=== PATIENT | male | born 1980 | race Caucasian/White ===

== ENCOUNTER → 2020-12-09 04:12 | Outpatient (CLI) | payer OTHER, SELFPAY ==
[2020-12-09 19:19] LABS: SARS-CoV-2 RNA PCR Negative
== END ==
PROVIDERS: PCP Family Medicine; Visit Provider Family Medicine
DX: J02.9 Acute pharyngitis, unspecified (principal); R51.9 Headache, unspecified; Z20.822 Contact with and (suspected) exposure to COVID-19
CPT/HCPCS: C9803; U0003; U0005

== ENCOUNTER 2022-06-21 10:52 | Outpatient (CLI) | payer OTHER, SELFPAY ==
[2022-06-21 12:03] LABS: SARS-CoV-2 RNA PCR Negative
== END 2022-06-21 10:53 | disposition home or self-care (01) ==
LOC: ANHLAB 10:59
PROVIDERS: PCP Family Medicine
DX: Z20.822 Contact with and (suspected) exposure to COVID-19 (principal)
CPT/HCPCS: U0003; U0005

== ENCOUNTER 2024-05-27 13:06 | Emergency (ER) | payer OTHER, SELFPAY ==
--- NOTE | 2024-05-27 13:08 | ED_ITS ---
HPI - URI/Sore Throat General Chief Complaint: Upper Respiratory Infection Stated Complaint: Congestion Source: patient and RN notes reviewed Mode of arrival: ambulatory Limitations: no limitations History of Present Illness HPI Narrative: Patient is a 44-year-old male who complains of sinus pain and pressure for the last 2 weeks. Patient reports nasal congestion and drainage. He also endorses postnasal drip. Denies cough, chest pain, shortness of breath. Denies recent fevers. States that he usually gets a sinus infection this time of year. He has tried [id number] medications without relief. Related Data Home Medications ?Medication ?Instructions ?Recorded ?Confirmed ?Last Taken ?Type acetaminophen 500 mg tablet 1,000 mg PO Q6H PRN 06/30/20 06/04/23 Unknown History (Tylenol Extra Strength) ibuprofen 600 mg tablet 600 mg PO Q6H PRN 06/30/20 06/04/23 Unknown History fexofenadine 180 mg tablet 180 mg PO DAILY 06/04/23 06/04/23 Unknown History (Yecenia Allergy) Allergies Allergy/AdvReac Type Severity Reaction Status Date / Time Penicillins AdvReac Mild Vomiting Verified 05/27/24 13:20 Review of Systems Review of Systems: CONSTITUTIONAL: Denies fever, chills, or sweats. EYES: Denies visual changes, redness, or discharge. ENT: Denies otalgia and sore throat. Reports nasal congestion and sinus pressure. CARDIOVASCULAR: Denies chest pain, palpitations, or edema. RESPIRATORY: Denies cough or dyspnea. GASTROINTESTINAL: Denies abdominal pain, nausea, vomiting, or diarrhea. GENITOURINARY: Denies dysuria or hematuria. SKIN: Denies rash or itching. MUSCULOSKELETAL: Denies back pain, joint pain, or myalgia. NEUROLOGIC: Reports headache but denies numbness or weakness. Pertinent positives per HPI. [facility] Past Medical History Medical History Bacterial meningitis Family History Family History Mother Cancer Social History Social History Smoking status: Never smoker Second hand tobacco smoke exposure: No Alcohol intake: current Alcohol use details: occasionally Substance use: never Substance use type: does not use Do You Feel Safe in your Home?: Yes Lack of Transportation: No Lack of Food: Never True Current Housing: I Have Housing Concerned About Future Housing: No Difficulty Paying Gas/Electric Bills: No Difficulty Paying for Meds: No Currently Unemployed: No Education: High School Diploma/GED Difficulty w/ Childcare or Family Care: No Living arrangements: with family Comments At the time of my signature, I reviewed and agree with the nursing past medical, surgical, social, and family history. There is no relevant family history pertinent to the patient complaint. Exam Narrative: GENERAL: This is a well-nourished, well-developed patient, in no apparent distress. HEAD: normocephalic, atraumatic. EYES: Sclera clear/white. Vision is grossly intact. EARS: External ears normal, auditory canals clear and without drainage, TMs normal without perforation. Hearing grossly intact. NOSE: External nose normal with positive congestion and rhinorrhea. Sinus tenderness. THROAT: Mucous membranes moist, posterior pharynx clear. NECK: Neck supple, non-tender without lymphadenopathy, masses or thyromegaly. CARDIOVASCULAR: Regular rate and rhythm without murmurs, gallops, or rubs. RESPIRATORY: Clear to auscultation. Breath sounds equal bilaterally. No wheezes, rales, or rhonchi. GASTROINTESTINAL: Abdomen soft, non-tender, nondistended. Bowel sounds are active. No hepato-splenomegaly, or palpable masses. No guarding. SKIN: warm, intact with no suspicious lesions or rash, good texture and turgor. NEURO: awake, alert, and oriented to person, place and time. There were no obvious focal neurologic abnormalities. Course Course Level of Care: Express Care Visit Vital Signs Vital signs: Vital Signs Temperature 97 F L 05/27/24 13:18 Pulse Rate 74 05/27/24 13:18 Respiratory Rate 16 05/27/24 13:18 Blood Pressure 112/73 05/27/24 13:18 Pulse Oximetry 100 05/27/24 13:18 Temperature 97 F L 05/27/24 13:18 Pulse Rate 74 05/27/24 13:18 Respiratory Rate 16 05/27/24 13:18 Blood Pressure 112/73 05/27/24 13:18 Pulse Oximetry 100 05/27/24 13:18 Reviewed MDM - URI/Sore Throat MDM Narrative Medical decision making narrative: Go to the ER for any new or worsening symptoms. Avoid smoking/second-hand smoke. Continue to take Tylenol or Motrin for pain. Increase your Vitamin C intake. Use a humidifier or vaporizer at night. Take Medications as prescribed. Drink plenty of water. 8-10 glasses per day. Use flonase 2 times per day for 5 days then as needed Take mucinex 2 times per day and be sure to take with 8oz of water. Follow up with Primary provider if not getting better. Differential Diagnosis Differential diagnosis: Likely upper respiratory infection, sinusitis and viral infection Lab Data Attestation: I reviewed the patient's lab results. Critical Care Time Critical Care Time Critical Care Time: No Discharge Plan Discharge Clinical Impression: Acute bacterial sinusitis Patient Disposition: Home, Self-Care Condition: Stable Instructions: Antibiotic Form, Sinusitis (ED) Additional Instructions: Go to the ER for any new or worsening symptoms. Avoid smoking/second-hand smoke. Continue to take Tylenol or Motrin for pain. Increase your Vitamin C intake. Use a humidifier or vaporizer at night. Take Medications as prescribed. Drink plenty of water. 8-10 glasses per day. Use flonase 2 times per day for 5 days then as needed Take mucinex 2 times per day and be sure to take with 8oz of water. Follow up with Primary provider if not getting better. Patient Language: Jordanian Prescriptions: New azithromycin 250 mg tablet See Rx Instructions .ROUTE .COMPLEX Qty: 6 0RF Rx Instructions: For 250 mg dose pack: take 500 mg today (day 1), then 250 mg for 4 days (days 2-5) fluticasone propionate [Flonase Allergy Relief] 50 mcg/actuation spray,suspension 1 spray intranasal BID Qty: 16 0RF Rx Instructions: administer into each nostril No Action ibuprofen 600 mg tablet 600 mg PO Q6H PRN acetaminophen [Tylenol Extra Strength] 500 mg tablet 1,000 mg PO Q6H PRN omeprazole 20 mg tablet,delayed release (DR/EC) 20 mg PO DAILY Qty: 90 3RF fexofenadine [Yecenia Allergy] 180 mg tablet 180 mg PO DAILY Follow-up/Referrals: PHYSICIAN,[employer]CRA[employer]INE [employer]LIND[employer]CH[employer]IC [Primary Care Provider] - Time of Disposition: 13:24
[2024-05-27 13:18] VITALS: BP 112/73; PULSE 74; RESP 16; TEMP 36.1; O2SAT 100
== END 2024-05-27 13:32 | disposition home or self-care (01) ==
PROVIDERS: Emergency Provider Nurse Practitioner
DX: J01.90 Acute sinusitis, unspecified (principal)
CPT/HCPCS: 99213; G0463

== ENCOUNTER 2025-01-27 08:02 | Emergency (ER) | payer OTHER, SELFPAY ==
--- NOTE | 2025-01-27 08:05 | ED.ABDPAIN ---
HPI - Abdominal Pain General Chief Complaint: Abdominal Pain Stated Complaint: Abdominal Pain/back pain/cloudy urine Time Seen by Provider: 01/27/25 08:18 Source: patient, RN notes reviewed and old records reviewed Mode of arrival: ambulatory Limitations: no limitations History of Present Illness HPI narrative: 45-year-old male with no significant medical history presents to the [facility] with generalized abdominal pain radiating into his back. Patient states that started approximately 7:00 p.m.. Has been vomiting every 2-3 hours since 7:00 p.m.. Patient unable to keep fluids down. Last bowel movement this morning, Harder than normal Onset (ago): hour(s) (13) Related Data Home Medications ?Medication ?Instructions ?Recorded ?Confirmed ?Last Taken ?Type acetaminophen 500 mg tablet 1,000 mg PO Q6H PRN 06/30/20 06/04/23 Unknown History (Tylenol Extra Strength) ibuprofen 600 mg tablet 600 mg PO Q6H PRN 06/30/20 06/04/23 Unknown History fexofenadine 180 mg tablet 180 mg PO DAILY 06/04/23 06/04/23 Unknown History (Yecenia Allergy) Allergies Allergy/AdvReac Type Severity Reaction Status Date / Time Penicillins AdvReac Mild Vomiting Verified 01/27/25 08:16 Review of Systems Review of Systems: All systems reviewed & are unremarkable except as noted in HPI and below Constitutional: Constitutional: Reports no additional constitutional complaints ENT: Reports system reviewed and no additional complaints, except as documented Cardiovascular: Cardiovascular: Reports no additional cardiovascular complaints, Denies chest pain and Denies dyspnea Respiratory: Respiratory: Reports no additional respiratory complaints, Denies chest congestion, Denies cough and Denies dyspnea Gastrointestinal: Gastrointestinal: Reports as per HPI, Reports abdominal pain, Reports nausea and Reports vomiting Genitourinary: Genitourinary: Reports as per HPI Musculoskeletal: Musculoskeletal: Reports as per HPI and Reports back pain Integumentary/Breasts: Skin/Breast: Reports system reviewed and no additional complaints, except as docu PMFSH Past Medical History Medical History Bacterial meningitis Family History Family History Mother Cancer Social History Social History (Reviewed 01/27/25 @ 08:07 by JAMES Canas Smoking status: Never smoker Second hand tobacco smoke exposure: No Alcohol intake: current Alcohol use details: occasionally Substance use: never Substance use type: does not use Do You Feel Safe in your Home?: Yes Lack of Transportation: No Lack of Food: Never True Current Housing: I Have Housing Concerned About Future Housing: No Difficulty Paying Gas/Electric Bills: No Difficulty Paying for Meds: No Currently Unemployed: No Education: High School Diploma/GED Difficulty w/ Childcare or Family Care: No Living arrangements: with family Comments At the time of my signature, I reviewed and agree with the nursing past medical, surgical, social, and family history. There is no relevant family history pertinent to the patient complaint. Exam Const: General: cooperative, well developed, alert, acute distress mild, ill appearing acutely, tired appearing, uncomfortable and well nourished Nutritional Appearance: well nourished Orientation/consciousness: patient oriented x3 Limitations: no limitations HENMT: Head: normal to inspection Mouth: Yes dry mucous membranes Eyes: General: appearance normal, both eyes and all related structures Alignment and Position: alignment normal Neck: Neck: normal visual inspection, full ROM, no lymphadenopathy and no meningeal signs Chest: Chest palpation & inspection: normal inspection of the chest Resp: Effort & Inspection: normal respiratory effort and able to speak in complete sentences Auscultation: clear to auscultation bilaterally, no crackles, no rales, no rhonchi and no wheezes Cardio: Rate: regular rate GI: GI Palp: Yes abdominal tenderness, Yes Firmness to palpation present (GI), Yes Tenderness to palpation present (GI) and Yes Guarding due to palpation present (GI) (Right lower quadrant) Auscultation: Hypoactive bowel sounds present Skin: General skin exam: normal color and no rashes or lesions noted Neuro: General: patient oriented x3, gait normal, moves all extremities and no meningeal signs Cognition (Neuro): normal cognition Speech: normal speech Gait exam (Neuro): Normal gait present Extrem: General: normal to inspection, full ROM, capillary refill normal and normal gait Psych: Appearance: grossly normal and well kempt Mental Status: mental status grossly normal Speech and movement: Normal speech and movement present and Clear speech present Affect: normal affect Attitude: cooperative Course Course Level of Care: Express Care Visit Vital Signs Vital signs: Vital Signs Temperature 97.1 F L 01/27/25 08:15 Pulse Rate 72 01/27/25 08:15 Respiratory Rate 16 01/27/25 08:15 Blood Pressure 123/79 01/27/25 08:15 Pulse Oximetry 100 01/27/25 08:15 Temperature 97.1 F L 01/27/25 08:15 Pulse Rate 72 01/27/25 08:15 Respiratory Rate 16 01/27/25 08:15 Blood Pressure 123/79 01/27/25 08:15 Pulse Oximetry 100 01/27/25 08:15 Reviewed Transfer Transfered to: [facility] (Per patient request) Transportation: Other (POV per patient request) Transfer rationale: Patient with significant abdominal pain, vomiting since 7:00 p.m. last night, sending for higher level of care rule out acute abdomen Accepting physician: Dr. Javier [facility] - Abdominal Pain MDM Narrative Medical decision making narrative: Patient sitting in exam room. Patient appears mildly uncomfortable but vitals are stable. Patient with 13 hours of abdominal pain, vomiting. Sending for higher level of care to rule out acute abdomen Transfer instructions reviewed with patient to go directly to the ER. Do not eat or drink until cleared by ER provider. EMS was offered which patient politely declined All questions have been answered, and the patient deny any further questions. Some parts of this dictation were generated by voice recognition software and may contain typographical and/or grammatical inaccuracies. Differential Diagnosis Differential diagnosis: Likely abdominal pain, acute appendicitis, calculus of kidney, diverticulitis, gastroenteritis, pancreatitis and small bowel obstruction Critical Care Time Critical Care Time Critical Care Time: No Discharge Plan Discharge Clinical Impression: Abdominal pain Qualifiers: Abdominal location: generalized Qualified Code(s): R10.84 - Generalized abdominal pain Nausea & vomiting Qualifiers: Vomiting type: unspecified Qualified Code(s): R11.2 - Nausea with vomiting, unspecified Patient Disposition: Acute Care Hospital Condition: Stable Patient Language: Yemeni Prescriptions: No Action fluticasone propionate [Flonase Allergy Relief] 50 mcg/actuation spray,suspension 1 spray intranasal BID Qty: 16 0RF Rx Instructions: administer into each nostril ibuprofen 600 mg tablet 600 mg PO Q6H PRN (Reason: unknown) acetaminophen [Tylenol Extra Strength] 500 mg tablet 1,000 mg PO Q6H PRN (Reason: fever or pain) omeprazole 20 mg tablet,delayed release (DR/EC) 20 mg PO DAILY Qty: 90 3RF fexofenadine [Yecenia Allergy] 180 mg tablet 180 mg PO DAILY Follow-up/Referrals: Chantel Pa MD [Primary Care Provider, Family Practice]
[2025-01-27 08:15] VITALS: BP 123/79; PULSE 72; RESP 16; TEMP 36.2; O2SAT 100
== END 2025-01-27 08:32 | disposition short-term general hospital (02) ==
PROVIDERS: Emergency Provider Nurse Practitioner; PCP Family Medicine
DX: R10.84 Generalized abdominal pain (principal); R11.2 Nausea with vomiting, unspecified
CPT/HCPCS: 99212; G0463

== ENCOUNTER 2025-01-27 08:46 | Emergency (ER) | payer OTHER, SELFPAY ==
[2025-01-27] VITALS (14 sets, daily range): BP systolic 126–142; BP diastolic 73–85; PULSE 57–70; RESP 11–27; TEMP 36.6; O2SAT 92–100
--- NOTE | ~2025-01-27 | CT_ITS ---
Exam: CT abdomen and pelvis with contrast Clinical History: [Mid to lower abdominal pain. Nausea and vomiting ] Comparison: [ None available] Technique: Multiple axial CT images of the abdomen and pelvis were obtained with IV contrast. Sagittal and coronal reformatted images were obtained. FINDINGS: Lung bases: [Small opacities in the lower lungs. ] Liver: [ No mass.] [ No intrahepatic biliary duct dilatation.] Gallbladder: [ No wall thickening or stones.] Common bile duct: [ Normal caliber.] [ No stones.] Spleen: [ Within normal limits.] Pancreas: [ No mass. No pancreatic fluid collection.] Adrenals: [ No masses.] Kidneys: [ No masses. No hydronephrosis.][ ] Lymph nodes: [ No adenopathy in the abdomen or pelvis.] Stomach, small bowel and colon: There are a few dilated small bowel loops in the left abdomen. Thickening of the casillas of the distal small bowel. Peritoneum cavity: Small amount of fluid in the pelvis. Bladder: [ Unremarkable.] Osseous structures: [ No acute fracture or destructive lesion.] [ Multilevel degenerative change in the visualized spine.] Abdominal aorta: [ No aneurysm.] Additional findings: [ None of significance.] IMPRESSION: 1. There are a few dilated small bowel loops in the left abdomen. Differential includes ileus or developing small bowel obstruction. Follow-up is recommended. 2. Thickening of the casillas of the distal small bowel. Differential includes incomplete bowel wall distention versus enteritis. Reviewed, dictated and finalized at location Q. IMPRESSION: 1. There are a few dilated small bowel loops in the left abdomen. Differential includes ileus or developing small bowel obstruction. Follow-up is recommended. 2. Thickening of the casillas of the distal small bowel. Differential includes inc omplete bowel wall distention versus enteritis.
--- NOTE | 2025-01-27 09:00 | ECG_ITS ---
Test Date: 2025-01-27 09:11:24 Measurements Intervals [place] Rate: 55 P: 31 IN: 197 QRS: 28 QRSD: 91 T: 39 QT: 422 QTc: 405 Interpretive Statements SINUS BRADYCARDIA BORDERLINE ECG No previous ECG available for comparison Electronically Signed On 01-27-2025 09:14:33 CDT by Grover Mcrae D.O.
[2025-01-27] MEDS: SODIUM CHLORIDE 0.9% IV 1,000 ML 999 ML IV CONT (09:07)
[2025-01-27] MEDS: ONDANSETRON INJ 4 MG/2 ML VIAL IV PUSH (09:07)
[2025-01-27] MEDS: HYDROmorphone HCL INJ (*CRX) 1 MG/ML SYR 0.5 MG IV PUSH (09:09)
[2025-01-27 09:10] LABS: Hematocrit 46.2 % (42.0-52.0); Hemoglobin 16.3 g/dL (14.0-18.0); Immature Granulocyte Percent A 0.3 % (0-0.5); Lymphocytes Absolute Auto 1.17 K/mm3 (0.9-3.2); Mean Corpuscular HGB Conc 35.3 g/dl (32-36); Mean Corpuscular Hemoglobin 30.3 pg (26-34); Mean Corpuscular Volume 85.9 fl (80-100); Nucleated Red Blood Cells Absolute Auto 0.000 K/mm3 (0.0-0.012); Nucleated Red Blood Cells Perc 0.0 % (0.0-0.2); Platelet Count Result 279 k/mm3 (150-375); Red Blood Count 5.38 M/mm3 (4.6-6.20); White Blood Count 10.1 K/mm3 (4.5-10.0)
[2025-01-27 09:28] LABS: Alanine Aminotransferase 34 U/L (6-50); Albumin Level 4.8 g/dL (3.5-5.1); Alkaline Phosphatase 94 U/L (38-126); Anion Gap 11 mmol/L (4-12); Aspartate Amino Transferase 35 U/L (17-59); Bilirubin,Total 1.3 mg/dL (0.2-1.3); Blood Urea Nitrogen 16 mg/dL (9-20); Calcium 9.6 mg/dL (8.4-10.2); Carbon Dioxide 23 mmol/L (22-30); Chloride 106 mmol/L (98-107); Estimated CRCL calculation 128 ml/min; Estimated Glomerular Filt Rate > 60; Glucose 129 mg/dL (65-110); Lipase 44 U/L (23-300); Potassium 3.6 mmol/L (3.4-5.0); Sodium 140 mmol/L (137-145); Total Protein 8.2 g/dL (6.3-8.2)
[2025-01-27 10:34] LABS: Add Urine Microscopic? YES; Appearance Urine Clear (Clear); Glucose Urine UA Negative (Negative); Leukocyte Esterase Ur Negative LEU/UL (Negative); Nitrate Urine Negative (Negative); Non Pathogenic Casts 0-2; Specific Grav Ur > 1.045 (1.001-1.035)
--- NOTE | 2025-01-27 10:34 | ED_ITS ---
HPI - General Adult General Chief complaint: Abdominal Pain Stated complaint: abdominal pain Time Seen by Provider: 01/27/25 08:49 History of Present Illness HPI narrative: This is a 45-year-old male presenting ED with chief complaint abdominal pain. Patient states that last night at 7:00 p.m. the stabbing pain or abdomen. It is associated with vomiting. Pain comes and goes and is improving. He has never had symptoms like this before there are no exacerbating alleviating factors. He has not had any fevers. Last bowel movement was last night and was normal. He notes his urine is cloudy but no pain on urination urgency or frequency. Related Data Home Medications ?Medication ?Instructions ?Recorded ?Confirmed ?Last Taken ?Type acetaminophen 500 mg tablet 1,000 mg PO Q6H PRN fever or pain 06/30/20 01/27/25 Unknown History (Tylenol Extra Strength) ibuprofen 600 mg tablet 600 mg PO Q6H PRN unknown 01/27/25 Unknown History fexofenadine 180 mg tablet 180 mg PO DAILY 06/04/23 Unknown History (Yecenia Allergy) Allergies Allergy/AdvReac Type Severity Reaction Status Date / Time Penicillins AdvReac Mild Vomiting Verified 01/27/25 09:01 [facility] Past Medical History Medical History Bacterial meningitis Family History Family History Mother Cancer Social History Social History Smoking status: Never smoker Second hand tobacco smoke exposure: No Alcohol intake: current Alcohol use details: occasionally Substance use: never Substance use type: does not use Do You Feel Safe in your Home?: Yes Lack of Transportation: No Lack of Food: Never True Current Housing: I Have Housing Concerned About Future Housing: No Difficulty Paying Gas/Electric Bills: No Difficulty Paying for Meds: No Currently Unemployed: No Education: High School Diploma/GED Difficulty w/ Childcare or Family Care: No Living arrangements: with family Exam 2 Narrative: APPEARANCE: No apparent distress. Head: atraumatic. EYES: EOMI, NOSE: Atraumatic NECK: Trachea midline RESPIRATORY: No increased rate of breathing clear to auscultation CARDIOVASCULAR: RRR, no peripheral edema ABDOMINAL: Soft nontender no guarding rebound, no CVA tenderness MUSCULOSKELETAl: No obvious deformities NEURO: Alert. Moving 4/4 extremities SKIN:: Warm, dry. Normal color PSYCHIATRIC: Normal affect Course Vital Signs Vital signs: Vital Signs Pulse Rate 70 01/27/25 08:52 Respiratory Rate 18 01/27/25 08:52 Blood Pressure 142/85 H 01/27/25 08:52 Pulse Oximetry 100 01/27/25 08:52 Temperature 97.8 F 01/27/25 09:00 Pulse Rate 57 L 01/27/25 10:00 Respiratory Rate 16 01/27/25 10:00 Blood Pressure 126/79 01/27/25 09:16 Pulse Oximetry 92 01/27/25 10:00 Oxygen Delivery Room Air 01/27/25 08:54 Medical Decision Making MDM Narrative Medical decision making narrative: -Course: 45-year-old male presenting with lower abdominal pain. Patient given fluids antiemetics and pain medication. His abdominal exam is benign with no tenderness guarding or rebound. CT abdomen pelvis showed inflammation of the distal small bowel. No mention of the appendix on the initial read I spoke with radiologist who reviewed the film and did not see any evidence of appendicitis. Patient was re-evaluated at bedside and is feeling much better. His vital signs are stable. His abdominal exam is benign. I discussed results CT scan and clinically this is likely gastroenteritis although ileus for small-bowel obstruction are possibilities. He is able to tolerate p.o.. He is still passing gas. Think that small-bowel obstruction ileus is less likely. He will be discharged with supportive medications and given strict return precautions for severe abdominal pain, intractable nausea vomiting or fevers. Patient is agreeable to this plan. -DDX includes but is not limited to: Gastroenteritis, appendicitis, colitis/gastroenteritis, biliary disease, kidney stone, UTI Vital Signs Vital Signs: Vital Signs Pulse Rate 70 01/27/25 08:52 Respiratory Rate 18 01/27/25 08:52 Blood Pressure 142/85 H 01/27/25 08:52 Pulse Oximetry 100 01/27/25 08:52 Temperature 97.8 F 01/27/25 09:00 Pulse Rate 57 L 01/27/25 10:00 Respiratory Rate 16 01/27/25 10:00 Blood Pressure 126/79 01/27/25 09:16 Pulse Oximetry 92 01/27/25 10:00 Oxygen Delivery Room Air 01/27/25 08:54 Lab Data 01/27/25 09:04 01/27/25 09:04 Labs: Lab Results 01/27/25 01/27/25 Range/Units 09:04 10:21 WBC 10.1 H (4.5-10.0) K/mm3 RBC 5.38 (4.6-6.20) M/mm3 Hgb 16.3 (14.0-18.0) g/dL Hct 46.2 (42.0-52.0) % MCV 85.9 (80-100) fl MCH 30.3 (26-34) pg MCHC 35.3 (32-36) g/dl RDW 12.9 (11.5-14.5) % Plt Count 279 (150-375) k/mm3 MPV 9.3 (7.4-10.4) fl Immature Gran % (Auto) 0.3 (0-0.5) % Neut % (Auto) 82.4 H (45.5-73.1) % Lymph % (Auto) 11.6 L (18.3-44.2) % [place] % (Auto) 5.2 (2.6-8.5) % Eos % (Auto) 0.3 (0-4.4) % Baso % (Auto) 0.2 (0.2-1.2) % Lymph # (Auto) 1.17 (0.9-3.2) K/mm3 [place] # (Auto) 0.5 (0.1-0.6) K/mm3 Eos # (Auto) 0.0 (0-0.3) K/mm3 Baso # (Auto) 0.0 (0.0-0.1) K/mm3 Abs Immat Gran (auto) 0.03 (0.00-0.031) K/mm3 Absolute Neuts (auto) 8.3 H (1.3-6.7) K/mm3 Absolute Nucleated RBC 0.000 (0.0-0.012) K/mm3 Nucleated RBC % 0.0 (0.0-0.2) % Sodium 140 (137-145) mmol/L Potassium 3.6 (3.4-5.0) mmol/L Chloride 106 (98-107) mmol/L Carbon Dioxide 23 (22-30) mmol/L Anion Gap 11 (4-12) mmol/L BUN 16 (9-20) mg/dL Creatinine 0.74 (0.7-1.3) mg/dL Estim Creat Clear Calc 128 ml/min Estimated GFR > 60 (59 - ) Glucose 129 H (65-110) mg/dL Calcium 9.6 (8.4-10.2) mg/dL Total Bilirubin 1.3 (0.2-1.3) mg/dL AST 35 (17-59) U/L ALT 34 (6-50) U/L Alkaline Phosphatase 94 (38-126) U/L Total Protein 8.2 (6.3-8.2) g/dL Albumin 4.8 (3.5-5.1) g/dL Lipase 44 (23-300) U/L Urine Color Pending Urine Appearance Pending Urine pH Pending Ur Specific Anna Pending Urine Protein Pending Urine Glucose (UA) Pending Urine Ketones Pending Ur Blood (Man) Pending Urine Nitrate Pending Urine Bilirubin Pending Urine Urobilinogen Pending Leukocyte Esterase Rfl Pending Discharge Plan Discharge Clinical Impression: Enteritis Patient Disposition: Home Condition: Stable Instructions: Antibiotic Form, Colitis (ED) Additional Instructions: You were seen in the emergency department for abdominal pain. Your CT showed inflammation of her bowel and he likely have gastroenteritis, a stomach flu. Please use pain medication as needed. Take Zofran for nausea. If you develop severe abdominal pain, fevers,. Passing gas or having a bowel movement, or have intractable nausea vomiting please return to the ED for re-evaluation. Please follow-up with your primary care physician in 3-5 days to ensure resolution of symptoms. Patient Language: Tajik Prescriptions: New ibuprofen 800 mg tablet 800 mg PO TID PRN (Reason: pain) 7 Days Qty: 21 0RF acetaminophen 500 mg tablet 1,000 mg PO TID PRN (Reason: keyla) 7 Days Qty: 42 0RF dicyclomine 20 mg tablet 20 mg PO BID Qty: 30 0RF ondansetron 4 mg tablet,disintegrating 4 mg PO Q8H PRN (Reason: nausea and vomiting) Qty: 30 0RF No Action fluticasone propionate [Flonase Allergy Relief] 50 mcg/actuation spray,suspension 1 spray intranasal BID Qty: 16 0RF Rx Instructions: administer into each nostril ibuprofen 600 mg tablet 600 mg PO Q6H PRN (Reason: unknown) acetaminophen [Tylenol Extra Strength] 500 mg tablet 1,000 mg PO Q6H PRN (Reason: fever or pain) omeprazole 20 mg tablet,delayed release (DR/EC) 20 mg PO DAILY Qty: 90 3RF fexofenadine [Yecenia Allergy] 180 mg tablet 180 mg PO DAILY Follow-up/Referrals: Chantel Pa MD [Primary Care Provider, Family Practice] - 3 Days Referral Note: ED f/u : suspected enteritis
--- NOTE | 2025-01-27 10:46 | PC.NURSE ---
Pt given water to drink. Denies nausea or vomiting
== END 2025-01-27 11:18 | disposition home or self-care (01) ==
PROVIDERS: Emergency Provider Emergency Medicine; PCP Family Medicine
DX: K52.9 Noninfective gastroenteritis and colitis, unspecified (principal)
CPT/HCPCS: 36415; 74177; 80053; 81001; 83690; 85025; 93005; 96361; 96374; 96375; 99284; J1171; J2405; J7030; Q9967